=== PATIENT | female | born 1990 | race Caucasian/White ===

== ENCOUNTER 2017-08-17 19:28 | Emergency (ER) | payer MEDICAID ==
[~2017-08-17] VITALS: Ht 157.5 cm; Wt 80.2 kg
[2017-08-17 19:29] VITALS: BP 125/78
[2017-08-17 20:37] LABS: HEMOGLOBIN 13.1 g/dL (11.7-16.4); WHITE BLOOD COUNT 8.7 x10^3/uL (3.4-10)
[2017-08-17 20:50] LABS: BLOOD UREA NITROGEN 18 mg/dL (7-18)
[2017-08-17] MEDS ORDERED: HYDROmorphone 1 MG/ML, 1ML ONE (21:48)
[2017-08-17] MEDS ORDERED: KETOROLAC 30 MG/1 ML ONE (21:48)
[2017-08-17] MEDS ORDERED: HYDROmorphone 1 MG/ML, 1ML IM ONE (22:00)
[2017-08-17] MEDS ORDERED: KETOROLAC 30 MG/1 ML IM ONE (22:00)
== END 2017-08-17 22:32 | disposition home or self-care (01) ==
LOC: ED 22:01
DX: M41.24 Other idiopathic scoliosis, thoracic region (principal); G89.29 Other chronic pain
CPT/HCPCS: 36415; 71020; 72072; 80048; 81003; 82040; 84703; 85025; 96372; 99285; J1170; J1885

== ENCOUNTER 2020-07-27 02:16 | Emergency (ER) | payer MEDICAID ==
[~2020-07-27] VITALS: Ht 162.6 cm; Wt 57.0 kg
--- NOTE | 2020-07-27 02:55 | NUR ---
PT REMOVING C-COLLAR REFUSING TO KEEP IT ON, PT STS IT IS UNCOMFORTABLE AND DOESN'T FIT PT EDUCATED ON NEED TO KEEP COLLAR IN PLACE STILL REFUSES.
--- NOTE | 2020-07-27 03:05 | NUR ---
TOMMY AT BEDSIDE FOR ASSESSMENT AT THIS TIME
[2020-07-27 03:32] VITALS: BP 124/76
[2020-07-27 03:45] LABS: BASOPHILS % (AUTO) 1 % (0-1); EOSINOPHILS % (AUTO) 2 % (1-7); LYMPHOCYTES % (AUTO) 30 % (22-44); MEAN CORPUSCULAR HEMOGLOBIN 30.3 pg (27.0-34.8); MEAN PLATELET VOLUME 8.2 fL (7.4-10.4); MONOCYTES % (AUTO) 8 % (2-9); NEUTROPHILS % (AUTO) 59 % (42-75); PLATELET COUNT 243 x10^3/uL (130-400); RED BLOOD COUNT 4.61 x10^6/uL (3.82-5.3)
[2020-07-27 03:47] LABS: MD NO
[2020-07-27 04:00] LABS: CHLORIDE 111 mmol/L (98-107)
--- NOTE | 2020-07-27 04:06 | NUR ---
ATTEMPT AT PIV X3. PT CRYING AND STATING HOW SHE DOES NOT WANT TO BE HERE AND HATES NEEDLES. WILL ATTEMPT AGAIN, AT A LATER TIME
[2020-07-27 04:09] LABS: ALANINE AMINOTRANSFERASE 25 U/L (12-78); ALBUMIN 3.6 g/dL (3.4-5.0); ALKALINE PHOSPHATASE 91 U/L (45-117); ANION GAP 5 mmol/L (5-15); BILIRUBIN,TOTAL 0.3 mg/dL (0.2-1.0); CALCIUM 8.3 mg/dL (8.5-10.1); TOTAL PROTEIN 7.2 g/dL (6.4-8.2)
--- NOTE | 2020-07-27 04:12 | NUR ---
MESERET NAVARRO WAS GOING TO GO INTO ROOM TO ATTEMPT TO START IV. PT AND S/O WALKED OUT OF AMBULACE BAY DOORS, DESPITE EDUCATION GIVEN TO PT ON REASON TO STAY AND COMPLETE EVALUATION.
== END 2020-07-27 04:17 | disposition left against medical advice (07) ==
LOC: ED 04:11
DX: S16.1XXA Strain of muscle, fascia and tendon at neck level, initial encounter (principal); V43.62XA Car passenger injured in collision with other type car in traffic accident, initial encounter; Y93.89 Activity, other specified; Y92.488 Other paved roadways as the place of occurrence of the external cause; Y99.8 Other external cause status
CPT/HCPCS: 36415; 80053; 83690; 84703; 85025; 93005; 99284